=== PATIENT | male | born 1945 | race Caucasian/White ===

== ENCOUNTER → 2018-11-22 | Outpatient (CLI) | payer OTHER | END | disposition home or self-care (01) | LOC: SHCH 14:27 | PROVIDERS: ATTEND Internal Medicine Cardiovascular Disease | DX: I11.9 Hypertensive heart disease without heart failure (principal); I07.1 Rheumatic tricuspid insufficiency; I25.2 Old myocardial infarction | CPT/HCPCS: 93306 ==

== ENCOUNTER 2021-04-23 07:28 | Day surgery (SDC) | payer OTHER ==
[2021-04-23] VITALS (7 sets, daily range): BP systolic 95–127; BP diastolic 53–78
[~2021-04-23] VITALS: Ht 162.6 cm; Wt 65.3 kg
[~2021-04-23 07:28] MED LIST: 0.9%NACL 1000ML 1,000 ML IV ONE; AEC81 PO; ATOR20TA65 PO; DICL20GE TP; LISI-809 PO; MULT-1203 PO
[2021-04-23] MEDS ORDERED: PROPOFOL 10 MG/ML 20ML VIAL IV ONE (09:25)
[2021-04-23] MEDS ORDERED: PHENYLEPHRINE HCL 10 MG/ML 1ML VIAL IV ONE (09:26)
[2021-04-23] MEDS ORDERED: SUCCINYLCHOLINE 200MG/10ML SYR ONE (09:27)
[2021-04-23] MEDS ORDERED: ATROPINE 1MG SYG IVP ONE (09:28)
== END 2021-04-23 10:45 | disposition home or self-care (01) ==
LOC: DAH 07:28 → ENDO 07:28
PROVIDERS: ATTEND Internal Medicine Gastroenterology
DX: Z12.11 Encounter for screening for malignant neoplasm of colon (principal); Z20.822 Contact with and (suspected) exposure to COVID-19; K64.0 First degree hemorrhoids; K63.5 Polyp of colon; I25.10 Atherosclerotic heart disease of native coronary artery without angina pectoris; I50.9 Heart failure, unspecified; M19.90 Unspecified osteoarthritis, unspecified site; F17.200 Nicotine dependence, unspecified, uncomplicated; Z98.890 Other specified postprocedural states; Z90.49 Acquired absence of other specified parts of digestive tract; Z95.0 Presence of cardiac pacemaker
CPT/HCPCS: 45380; 87635; A4215 ×2; A4221; A4222; A4223; A4606; A4620; A4657; A4663; C9803; J0330; J0461; J2370; J2704; J7030

== ENCOUNTER 2021-10-09 06:33 | Day surgery (SDC) | payer OTHER ==
[2021-10-07 12:47] VITALS: BP 160/74
[2021-10-07 13:10] LABS: BASOPHILS % (AUTO) 1.4 % (0.0-5.0); EOSINOPHILS % (AUTO) 1.9 % (0.0-8.0); HEMATOCRIT 40.1 % (42-54); LYMPHOCYTES % (AUTO) 29.5 % (21.0-51.0); MEAN CORPUSCULAR HEMOGLOBIN 31.8 pg (27.0-33.0); MEAN CORPUSCULAR HGB CONC 34.2 g/dL (32.0-36.0); MONOCYTES % (AUTO) 10.7 % (3.0-13.0); PLATELET COUNT (AUTO) 196 K/uL (130-400); RED BLOOD CELL COUNT(AUTO) 4.31 MIL/uL (4.50-6.20); RED CELL DISTRIBUTION WIDTH 12.1 % (11.0-15.5); WHITE BLOOD COUNT (AUTO) 8.1 K/uL (4.8-10.8)
[2021-10-07 13:26] LABS: INR 0.95 (0.85-1.15); PROTHROMBIN TIME 10.4 SEC (9.6-11.6)
[2021-10-07 13:28] LABS: PARTIAL THROMBOPLASTIN TIME 29.4 SEC (26.3-35.5)
[2021-10-07 13:29] LABS: CREATININE 0.7 mg/dL (0.5-1.5)
[~2021-10-09] VITALS: Ht 162.6 cm; Wt 67.2 kg
[2021-10-09] VITALS (8 sets, daily range): BP systolic 119–148; BP diastolic 63–83
[~2021-10-09 06:33] MED LIST changes: +0.9% NACL 500ML IV.SOLN 500 ML IV SCH; -0.9%NACL 1000ML 1,000 ML IV ONE; -ATOR20TA65 PO; +ATOR40TA71 PO; +CEFAZOLIN SODIUM 1 GM VIAL IVP SCH; -DICL20GE TP; -LISI-809 PO; +LISI5TAB21 PO; -MULT-1203 PO
[2021-10-09] MEDS ORDERED: 0.9%NACL 1000ML 1,000 ML IV ONE (07:45)
[2021-10-09] MEDS ORDERED: MEPERIDINE-PF 50 MG/ML SYG ONE (08:46)
[2021-10-09] MEDS ORDERED: MIDAZOLAM HCL 1 MG/ML 2ML VIAL ONE ×2 (08:46→09:43)
[2021-10-09] MEDS ORDERED: BUPIVACAINE/PF 0.25% 30ML VIAL IJ ONE (08:46)
[2021-10-09] MEDS ORDERED: LIDOCAINE HCL 1% MDV 50ML VIAL ONE (08:47)
[2021-10-09] MEDS ORDERED: DiphenhydrAMINE HCL 50 MG/ML VIAL ONE (09:31)
[2021-10-09] MEDS ORDERED: TRAM50TA4 PO (10:42)
[2021-10-09] MEDS ORDERED: METO-408 PO (10:42)
[2021-10-09] MEDS ORDERED: ACETAMINOPHEN WITH CODEINE 1 TAB TAB PO PRN (11:00)
== END 2021-10-09 13:55 | disposition home or self-care (01) ==
LOC: DAH 06:33
PROVIDERS: ATTEND Internal Medicine Cardiovascular Disease
DX: Z45.02 Encounter for adjustment and management of automatic implantable cardiac defibrillator (principal); I25.5 Ischemic cardiomyopathy; I44.1 Atrioventricular block, second degree; I49.5 Sick sinus syndrome; I47.2 Ventricular tachycardia; I25.10 Atherosclerotic heart disease of native coronary artery without angina pectoris; I10 Essential (primary) hypertension; E78.00 Pure hypercholesterolemia, unspecified; Z90.49 Acquired absence of other specified parts of digestive tract; Z98.890 Other specified postprocedural states; Z79.01 Long term (current) use of anticoagulants; Z79.899 Other long term (current) drug therapy
CPT/HCPCS: 33263; 36415; 80048; 85025; 85610; 85730; 93005; A4215; A4216; A4221; A4222; A4223 ×3; A4606; A4663; C1721; J0690 ×2; J1200; J2175; J2250 ×2; J3490 ×2; J7030; 99156; 99157